=== PATIENT | female | born 1945 | race Caucasian/White ===

== ENCOUNTER 2016-12-13 15:57 | Emergency (ER) | payer MEDICARE, OTHER ==
[~2016-12-13 15:57] MED LIST: ALTACE DPS10 MG PO; ASPIRIN325 MG PO; CARDIZEM CD240 M1 PO; CARVEDILOL12.5 MG PO; CENTRUM COMPLE1 EACH PO; ELIQUIS5 MG PO; FLAXSEED-FISH-400 MG PO; GARLIC1 EAC1 PO; GLUCOPHAGE-DPS500 MG PO; HCTZ12.5 MG PO; MELATONIN5 MG PO; MOVE FREE ULTR1 EAC1 PO; OXYBUTYNIN CHLO15 MG PO; OXYBUTYNIN CHLOR5 MG PO; POTASSIUM CHLO20 ME2 PO; PRAVACHOL10 MG PO; TAMBOCOR DPS50 MG PO
--- NOTE | 2016-12-14 10:00 | ER ---
ADMIT: 12/13/2016 RM/LOC: ER [facility] MR#: [id number] [facility] [id number] [place] [address] [place] [address] Emergency Room Report SEX: F AGE: 71 : 1945 DATE: 12/13/2016 ADDENDUM: A 71-year-old white female, coming in thinking she has a TIA. However, neurologically she is completely intact. She said that she is weak. She may have a little generalized weakness but I do not think is from a TIA. CT scan, chest x-ray, CBC, chemistry. INR is 2.33. EKG, I do not see anything acute though she has had a history of AFib. At this time, discharged home. Continue medications. Follow up with doctor as needed. Lake Heath MD/ maddi JOB #: [id number] CC: Lake Heath MD, Attending Physician Radha Zuluaga MD, Family Physician
== END 2016-12-13 19:01 | disposition home or self-care (01) ==
LOC: ER 15:57
DX: R53.1 Weakness (principal); E11.9 Type 2 diabetes mellitus without complications; I10 Essential (primary) hypertension; E78.5 Hyperlipidemia, unspecified